=== PATIENT | female | born 1960 | race Caucasian/White ===

== ENCOUNTER → 2017-09-24 | Outpatient (CLI) | payer BC, OTHER ==
[~2017-09-24] MED LIST: ATOR80TA PO; DIVA250T PO; LEVO50TA6 PO; METF1TAB85 PO; OMEP40CA PO; PROP10TA7 PO; SERT-234 PO; SITA100T3 PO; TRAM-10 PO
[2017-09-24 12:30] LABS: ESTIMATED AVERAGE GLUCOSE 126 mg/dl; HA1C FLAG Normal (Normal)
[2017-09-24 12:51] LABS: BLOOD UREA NITROGEN 16 mg/dl (7-18); BUN/CREATININE RATIO 18.7 (10-20); CARBON DIOXIDE 26 mmol/L (21-32); CHLORIDE 104 mmol/L (98-107); CREATININE 0.88 mg/dl (0.60-1.20); GLUCOSE 122 mg/dl (70-99); POTASSIUM 4.3 mmol/L (3.5-5.1); SODIUM 138 mmol/L (136-145)
== END | disposition home or self-care (01) ==
LOC: C.LABPBG 09:56
PROVIDERS: ATTEND Internal Medicine Endocrinology, Diabetes & Metabolism
DX: E11.43 Type 2 diabetes mellitus with diabetic autonomic (poly)neuropathy (principal); E78.5 Hyperlipidemia, unspecified; E03.9 Hypothyroidism, unspecified

== ENCOUNTER → 2017-10-21 | Outpatient (CLI) | payer BC, OTHER ==
[2017-10-21 12:24] LABS: BASO % 0.4 %; BASO ABS # 0.03 K/uL (0-0.2); COMPLETE YES; HEMATOCRIT 41.8 % (37-47); IG% 0.1 %; LYMPH % 35.8 %; LYMPH ABS # 2.75 K/uL (1.2-3.4); MEAN CELL VOLUME 90.7 fL (80-100); MEAN CORPUSCULAR HEMOGLOBIN 31.5 pg (25-34); MEAN CORPUSCULAR HGB CONC 34.7 g/dl (32-36); MEAN PLATELET VOLUME 10.2 fL (7.4-10.4); NEUT % 53.7 %; PLATELET COUNT 290 K/uL (130-400); RED BLOOD COUNT 4.61 M/uL (4.2-5.4); WHITE BLOOD COUNT 7.68 K/uL (4.8-10.8)
[2017-10-21 12:42] LABS: ALT/SGPT 36 U/L (12-78); AST/SGOT 14 U/L (15-37); BLOOD UREA NITROGEN 13 mg/dl (7-18); BUN/CREATININE RATIO 16.3 (10-20); CALCIUM 9.2 mg/dl (8.5-10.1); CARBON DIOXIDE 28 mmol/L (21-32); CHLORIDE 105 mmol/L (98-107); CREATININE 0.79 mg/dl (0.60-1.20); GLUCOSE 103 mg/dl (70-99); POTASSIUM 4.3 mmol/L (3.5-5.1); SODIUM 137 mmol/L (136-145)
[2017-10-21 12:47] LABS: CHOLESTEROL/HDL RATIO 4.2
[2017-10-21 12:53] LABS: ALB/GLOB RATIO 1.2 (0.9-2); ALKALINE PHOSPHATASE 61 U/L (45-117)
== END | disposition home or self-care (01) ==
LOC: C.LABPBG 07:33
PROVIDERS: ATTEND Physician Assistant
DX: Z00.00 Encounter for general adult medical examination without abnormal findings (principal); Z51.81 Encounter for therapeutic drug level monitoring; Z79.899 Other long term (current) drug therapy

== ENCOUNTER → 2017-12-26 | Outpatient (CLI) | payer BC, OTHER ==
[2017-12-26 13:07] LABS: HEMOGLOBIN A1C 6.1 % (4.5-5.6)
[2017-12-26 13:17] LABS: BLOOD UREA NITROGEN 15 mg/dl (7-18); CALCIUM 9.4 mg/dl (8.5-10.1); CARBON DIOXIDE 23 mmol/L (21-32); CREATININE 0.86 mg/dl (0.60-1.20); GLUCOSE 101 mg/dl (70-99); POTASSIUM 4.2 mmol/L (3.5-5.1); SODIUM 136 mmol/L (136-145)
[2017-12-26 13:19] LABS: LDL CHOLESTEROL (DIRECT) 128 mg/dl
== END | disposition home or self-care (01) ==
LOC: C.LABPBG 07:30
PROVIDERS: ATTEND Nurse Practitioner Family
DX: E11.43 Type 2 diabetes mellitus with diabetic autonomic (poly)neuropathy (principal); E78.5 Hyperlipidemia, unspecified; E03.9 Hypothyroidism, unspecified

== ENCOUNTER → 2018-06-22 | Outpatient (CLI) | payer BC, OTHER ==
[~2018-06-22] MED LIST changes: +ATOR-26 PO; -ATOR80TA PO; +DIPH-437 PO; -DIVA250T PO; +EZET10TA63 PO; +FEXO1TAB49 PO; +LIRA18IN SC; +LORA-741 PO; -METF1TAB85 PO; -OMEP40CA PO; +PANT40TA PO; +RANI300T2 PO; -SITA100T3 PO; -TRAM-10 PO
--- NOTE | 2018-06-23 07:27 | DIAGNOSTIC IMAGING REPORT ---
R UPPER EXT JOINT WITHOUT CLINICAL HISTORY: 58 years-old Female with M25.511 Right shoulder painM25.619 Decreased range of motion of. Acute right shoulder pain with decreased range of motion. COMPARISON: None. TECHNIQUE: Multiplanar, multi sequence MRI of the right shoulder was performed without intravenous contrast. FINDINGS: ROTATOR CUFF: There is moderate tendinosis of the supraspinatus with mild infraspinatus tendinosis also noted. No high-grade partial or full-thickness rotator cuff tear identified. Mild tendinosis of the subscapularis. Teres minor appears unremarkable and is intact. The rotator cuff musculature is normal in morphology and signal. BICEPS TENDON: The long-head biceps tendon is intact. No evidence of tendinosis. The biceps kwaku and anchor are intact. LABRUM: Mild degenerative fraying/irregularity of the labrum without acute tear identified. There is no evidence for a paralabral cyst. GLENOHUMERAL JOINT: Mild chondral thinning of the glenohumeral joint. There is no large glenohumeral joint effusion. There is no loose body or debris present within the glenohumeral joint. ACROMIOCLAVICULAR JOINT: Moderate to severe joint space narrowing with marginal spurring, capsular hypertrophy, and subchondral cystic change/edema of the AC joint. No evidence of os acromiale. Mild to moderate subacromial/subdeltoid bursitis. OUTLET SPACES: The suprascapular notch and quadrilateral space are without obstructing or space occupying lesions. BONE MARROW: No acute fracture or marrow occupying lesion. Subcortical cystic changes with mild subcortical edema involves the anterior facet of the greater tuberosity. SOFT TISSUES: The periarticular soft tissues appear unremarkable. IMPRESSION: 1. Moderate supraspinatus and mild infraspinatus tendinosis without evidence of high-grade partial or full-thickness rotator cuff tear. 2. Subcortical cystic changes with mild subcortical bone marrow edema of the anterior facet greater tuberosity, likely degenerative/reactive in nature. 3. Moderate to severe degenerative changes about the AC joint with mild to moderate subacromial/subdeltoid bursitis. The above report was generated using voice recognition software. It may contain grammatical, syntax or spelling errors. Electronically signed by: Gerardo Rene M.D. 06/23/2018 7:26 AM Dictated Date/Time: 06/23/2018 7:16 AM
== END | disposition home or self-care (01) ==
LOC: C.MRI 07:52
PROVIDERS: ATTEND Family Medicine
DX: M25.511 Pain in right shoulder (principal); M25.619 Stiffness of unspecified shoulder, not elsewhere classified